=== PATIENT | male | born 1965 | race Hispanic/Latino ===

== ENCOUNTER 2019-02-26 12:23 | Emergency (ER) | payer SELFPAY ==
[2019-02-26] MEDS ORDERED: ONDANSETRON 4 MG/2 ML VIAL ONE (12:43)
[2019-02-26] MEDS ORDERED: NA CHLORIDE 0.9% 1,000 ML ONE ×2 (12:43→13:35)
[2019-02-26 12:58] LABS: Absolute Lymphocytes (CBC) 1.2 K/uL (0.7-4.9); Basophils % 0.2 % (0-1.3); Hematocrit 42.4 % (39.6-49.0); Lymphocytes % 12.8 % (15.3-44.8); MPV 9.9 fL (7.6-11.3); RBC Red Blood Cell Count 4.72 M/uL (4.33-5.43)
[2019-02-26 13:06] LABS: Protime INR 1.09
[2019-02-26 13:21] LABS: ALT/SGPT 35 U/L (12-78); AST/SGOT 28 U/L (15-37); Albumin 4.1 g/dL (3.4-5.0); Alkaline Phosphatase 79 U/L (45-117); BUN Blood Urea Nitrogen 18 mg/dL (7-18); Bicarbonate 20 mmol/L (21-32); Bilirubin Direct 0.2 mg/dL (0-0.2); Bilirubin Total 0.7 mg/dL (0.2-1.0); CKMB Creatine Kinase MB 2.2 ng/mL (0.3-3.6); Creatine Phosphokinase 275 U/L (39-308); Glucose Level 193 mg/dL (74-106); Magnesium 1.8 mg/dL (1.8-2.4); NT PRO-BNP 65 pg/mL (<125); Protein, Total 7.8 g/dL (6.4-8.2); Sodium Level 133 mmol/L (136-145); Troponin (Emerg Dept Use Only) < 0.02 ng/mL (0.0-0.045)
--- NOTE | 2019-02-26 15:16 | ER ---
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 denies vomiting or chest pain. he took 3 salt tablets. BGL was 324 mg/dl. BP was high from 190/100 decreased to 160/80, 94 pulse and after 700 ml NS bolus. Transition of care: patient was not received from another setting of care. Onset of symptoms was February 26, 2019. Risk Assessment: Do you want to hurt yourself or someone else? Patient reports no desire to harm self or others. Risk Assessment: Do you want to hurt yourself or someone else?. Initial Sepsis Screen: Does the patient meet any 2 criteria? No. Patient's initial sepsis screen is negative. Does the patient have a suspected source of infection? No. Patient's initial sepsis screen is negative. Care prior to arrival: None. 12:33 Method Of Arrival: EMS: [facility] mg2 12:33 Acuity: COURTNEY 3 mg2 Historical: - Allergies: 12:38 PENICILLINS; mg2 - Home Meds: 12:38 metformin 500 mg [Active]; glapizy [Active]; labitra 10 mg [Active]; lisinopril 10 mg mg2 [Active]; - PMHx: 12:38 Hypertension; Diabetes - NIDDM; mg2 - PSHx: 12:38 hand surgery; mg2 - Immunization history:: Flu vaccine is not up to date. - Social history:: Smoking status: Patient/guardian denies using tobacco, Patient/guardian denies using alcohol, street drugs, IV drugs. - Ebola Screening: : No symptoms or risks identified at this time. Screenin:39 Abuse screen: Denies threats or abuse. Denies injuries from another. Nutritional mg2 screening: No deficits noted. Tuberculosis screening: No symptoms or risk factors identified. Fall Risk IV access (20 points). Assessment: 12:41 General: Appears in no apparent distress. comfortable, Behavior is calm, cooperative. mg2 Pain: Complains of pain in abdomen, right leg and left leg Pain does not radiate. Quality of pain is described as crampy, Pain began gradually, Is intermittent. Neuro: Level of Consciousness is awake, alert, obeys commands, Oriented to person, place, time, situation. Cardiovascular: Capillary refill < 3 seconds Patient's skin is warm and dry. Respiratory: Airway is patent Respiratory effort is even, unlabored, Respiratory pattern is regular, symmetrical. GI: Reports lower abdominal pain, cramping, nausea. : No signs and/or symptoms were reported regarding the genitourinary system. EENT: No signs and/or symptoms were reported regarding the EENT system. Derm: Skin is intact, is healthy with good turgor, Skin is pink, warm \T\ dry. normal. Musculoskeletal: Circulation, motion, and sensation intact. Capillary refill < 3 seconds. 13:50 Reassessment: patient still complained of right leg cramping. mg2 Vital Signs: 12:35 BP 139 / 98; Pulse 90; Resp 18; Temp 97.9; Pulse Ox 100% on R/A; Weight 88.9 kg; Height mg2 5 ft. 6 in. (167.64 cm); Pain 0/10; 14:08 BP 129 / 90; Pulse 78; Resp 18; Pulse Ox 100% on R/A; mg2 15:56 BP 128 / 78; Pulse 80; Resp 18; Temp 98; Pulse Ox 100% on R/A; Pain 0/10; mg2 12:35 Body Mass Index 31.63 (88.90 kg, 167.64 cm) mg2 ED Course: 12:32 Patient arrived in ED. mg2 12:34 Emiliano Zapata PA is PHCP. cp 12:34 Steve Green MD is Attending Physician. cp 12:35 Triage completed. mg2 12:38 EKG done, by communication electronic technician. reviewed by Emiliano PEREZ. vh 12:38 No provider procedures requiring assistance completed. Maintain EMS IV. Dressing mg2 intact. Good blood return noted. Site clean \T\ dry. Gauge \T\ site: 18 \T\ LAC. 12:38 Arm band placed on. mg2 12:42 Patient has correct armband on for positive identification. mg2 12:47 Markos Godfrey RN is Primary Nurse. mg2 15:57 IV discontinued, intact, bleeding controlled, No redness/swelling at site. Pressure mg2 dressing applied. Administered Medications: 12:47 Drug: Zofran 4 mg Route: IVP; Site: left antecubital; mg2 14:32 Follow up: Response: No adverse reaction; Marked relief of symptoms mg2 12:47 Drug: NS 0.9% 1000 ml Route: IV; Rate: 1 bolus; Site: left antecubital; mg2 14:32 Follow up: Response: No adverse reaction; IV Status: Completed infusion; IV Intake: mg2 1000ml 14:03 Drug: NS 0.9% 1000 ml Route: IV; Rate: 1 bolus; Site: left antecubital; mg2 15:57 Follow up: Response: No adverse reaction; IV Status: Completed infusion; IV Intake: mg2 1000ml Point of Care Testing: Blood Glucose: 12:40 Blood Glucose: 218 mg/dL; mg2 Ranges: Intake: 14:32 IV: 1000ml; Total: 1000ml. mg2 15:57 IV: 1000ml; Total: 2000ml. mg2 Outcome: 15:15 Discharge ordered by MD. cp 15:57 Discharged to home ambulatory, with friend. mg2 15:57 Condition: stable 15:57 Discharge instructions given to patient, Instructed on discharge instructions, follow up and referral plans. medication usage, Demonstrated understanding of instructions, follow-up care, medications, Prescriptions given X 1. 15:58 Patient left the ED. mg2 Signatures: Milana Contreras Corey, PA PA cp Gardose, Michele, RN RN mg2
--- NOTE | 2019-02-26 15:16 | EDPHYS ---
Physician Documentation [facility] Name: Sesar Cabrera Age: 53 yrs Sex: Male : 1965 Arrival Date: 02/26/2019 Time: 12:32 Bed 2 Private MD: ED Physician Steve Green HPI: 02/26 12:40 This 53 yrs old Male presents to ER via EMS with complaints of nausea, cp generalized cramping. 12:40 generalized cramping. Onset: The symptoms/episode began/occurred today, while at work. cp Severity of symptoms: in the emergency department the symptoms are unchanged despite EMS interventions. Patient reports generalized cramping, nausea that started this afternoon after working outside since this morning. No vomiting, no chest or abdominal pain, no passing out. Historical: - Allergies: 12:38 PENICILLINS; mg2 - Home Meds: 12:38 metformin 500 mg [Active]; glapizy [Active]; labitra 10 mg [Active]; lisinopril 10 mg mg2 [Active]; - PMHx: 12:38 Hypertension; Diabetes - NIDDM; mg2 - PSHx: 12:38 hand surgery; mg2 - Immunization history:: Flu vaccine is not up to date. - Social history:: Smoking status: Patient/guardian denies using tobacco, Patient/guardian denies using alcohol, street drugs, IV drugs. - Ebola Screening: : No symptoms or risks identified at this time. ROS: 12:45 Constitutional: Negative for body aches, chills, fever, poor PO intake. cp 12:45 Eyes: Negative for injury, pain, redness, and discharge. cp 12:45 ENT: Negative for drainage from ear(s), ear pain, sore throat, difficulty swallowing, difficulty handling secretions. 12:45 Cardiovascular: Negative for chest pain, edema, palpitations. 12:45 Respiratory: Negative for cough, shortness of breath, wheezing. 12:45 Abdomen/GI: Positive for nausea, abdominal cramps, Negative for abdominal pain, constipation, black/tarry stool, rectal bleeding. 12:45 Back: Negative for pain at rest, pain with movement. 12:45 : Negative for burning with urination. 12:45 MS/extremity: Positive for generalized muscle cramps. 12:45 Neuro: Negative for altered mental status, dizziness, headache, syncope, weakness. 12:45 All other systems are negative. Exam: 12:35 ECG was reviewed by the Attending Physician. cp 12:50 Constitutional: The patient appears in no acute distress, alert, awake, cp non-diaphoretic, non-toxic, well developed, well nourished. 12:50 Head/Face: Normocephalic, atraumatic. cp 12:50 Eyes: Periorbital structures: appear normal, Pupils: equal, round, and reactive to cp light and accomodation, Extraocular movements: intact throughout, Conjunctiva: normal, no exudate, no injection, Sclera: no appreciated abnormality, Lids and lashes: appear normal, bilaterally. 12:50 ENT: External ear(s): are unremarkable, Nose: is normal, Mouth: Lips: moist, Oral mucosa: pink and intact, moist, Posterior pharynx: is normal, airway is patent, no erythema, no exudate. 12:50 Neck: ROM/movement: is normal, is supple, without pain, no range of motions cp limitations, no nuchal rigidity. 12:50 Chest/axilla: Inspection: normal, Palpation: is normal, no crepitus, no tenderness. 12:50 Cardiovascular: Rate: normal, Rhythm: regular, Edema: is not appreciated, JVD: is not appreciated. 12:50 Respiratory: the patient does not display signs of respiratory distress, Respirations: normal, no use of accessory muscles, no retractions, no splinting, no tachypnea, labored breathing, is not present, Breath sounds: are clear throughout, no decreased breath sounds, no stridor, no wheezing. 12:50 Abdomen/GI: Inspection: abdomen appears normal, Bowel sounds: active, all quadrants, Palpation: soft, in all quadrants, nontender, in all quadrants, involuntary guarding, is not appreciated. 12:50 Back: pain, is absent, ROM is normal. 12:50 Skin: no rash present. 12:50 Neuro: Orientation: to person, place \T\ time. Mentation: is normal, Cerebellar function: is grossly normal, Motor: moves all fours, strength is normal, Sensation: is normal. Vital Signs: 12:35 BP 139 / 98; Pulse 90; Resp 18; Temp 97.9; Pulse Ox 100% on R/A; Weight 88.9 kg; Height mg2 5 ft. 6 in. (167.64 cm); Pain 0/10; 14:08 BP 129 / 90; Pulse 78; Resp 18; Pulse Ox 100% on R/A; mg2 15:56 BP 128 / 78; Pulse 80; Resp 18; Temp 98; Pulse Ox 100% on R/A; Pain 0/10; mg2 12:35 Body Mass Index 31.63 (88.90 kg, 167.64 cm) mg2 MDM: 12:53 Patient medically screened. cp 15:14 Data reviewed: vital signs, nurses notes, lab test result(s), EKG. cp 15:14 Differential Diagnosis dehydration, renal failure, rhabdomyolysis, electrolyte cp abnormality. Test interpretation: by ED physician or midlevel provider: ECG. Response to treatment: the patient's symptoms have markedly improved after treatment, and as a result, I will discharge patient. 02/26 12:35 Order name: Basic Metabolic Panel; Complete Time: 13:31 cp 02/26 13:31 Interpretation: Normal except: NA 133; CO2 20; GLUC 193; CRE 1.69; GFR 43. cp 02/26 12:35 Order name: CBC with Diff; Complete Time: 13:31 cp 02/26 13:32 Interpretation: Normal except: CHANG% 79.6; LYM% 12.8. cp 02/26 12:35 Order name: LFT's; Complete Time: 13:31 cp 02/26 12:35 Order name: Magnesium; Complete Time: 13:31 cp 02/26 12:35 Order name: NT PRO-BNP; Complete Time: 13:31 cp 02/26 12:35 Order name: PT-INR; Complete Time: 13:31 cp 02/26 12:35 Order name: Troponin (emerg Dept Use Only); Complete Time: 13:31 cp 02/26 12:35 Order name: EKG; Complete Time: 12:36 cp 02/26 12:35 Order name: Ckmb; Complete Time: 13:31 cp 02/26 12:35 Order name: CK; Complete Time: 13:31 cp 02/26 12:35 Order name: Cardiac monitoring; Complete Time: 12:39 cp 02/26 12:35 Order name: EKG - Nurse/Tech; Complete Time: 12:39 cp 02/26 12:35 Order name: IV Saline Lock; Complete Time: 12:39 cp 08/16 12:35 Order name: Labs collected and sent; Complete Time: 12:39 cp 08/16 12:35 Order name: O2 Per Protocol; Complete Time: 12:39 cp 08/16 12:35 Order name: O2 Sat Monitoring; Complete Time: 12:39 cp 08/16 12:35 Order name: Finger Stick; Complete Time: 12:39 cp 08/16 14:12 Order name: PO challenge; Complete Time: 15:01 cp EC:35 Rate is 92 beats/min. Rhythm is regular. GA interval is prolonged at 224 msec. QRS cp interval is normal. QT interval is normal. Interpreted by me. Reviewed by me. Administered Medications: 12:47 Drug: Zofran 4 mg Route: IVP; Site: left antecubital; mg2 14:32 Follow up: Response: No adverse reaction; Marked relief of symptoms mg2 12:47 Drug: NS 0.9% 1000 ml Route: IV; Rate: 1 bolus; Site: left antecubital; mg2 14:32 Follow up: Response: No adverse reaction; IV Status: Completed infusion; IV Intake: mg2 1000ml 14:03 Drug: NS 0.9% 1000 ml Route: IV; Rate: 1 bolus; Site: left antecubital; mg2 15:57 Follow up: Response: No adverse reaction; IV Status: Completed infusion; IV Intake: mg2 1000ml Point of Care Testing: Blood Glucose: 12:40 Blood Glucose: 218 mg/dL; mg2 Ranges: Critical Glucose Levels:Adult <50 mg/dl or >400 mg/dl <40 mg/dl or >180 mg/dl Disposition: 18:12 Co-signature as Attending Physician, Steve Green MD. rn Disposition: 02/26/19 15:15 Discharged to Home. Impression: Cramp and spasm - generalized, Nausea. - Condition is Stable. - Discharge Instructions: Dehydration, Adult, Muscle Cramps and Spasms. - Prescriptions for Zofran 4 mg Oral Tablet - take 1 tablet by ORAL route every 12 hours As needed; 20 tablet. - Medication Reconciliation Form, Thank You Letter, Antibiotic Education, Prescription Opioid Use form. - Follow up: Private Physician; When: 2 - 3 days; Reason: Worsening of condition. - Problem is new. - Symptoms have improved. Signatures: Dispatcher [employer] EDMS Steve Green MD MD rn Emiliano Zapata PA PA cp Markos Godfrey, RN RN mg2 Corrections: (The following items were deleted from the chart) 15:15 15:12 EKG Electrocardiogram ordered. [facility] 15:58 15:15 02/26/2019 15:15 Discharged to Home. Impression: Cramp and spasm - generalized; mg2 Nausea. Condition is Stable. Forms are Medication Reconciliation Form, Thank You Letter, Antibiotic Education, Prescription Opioid Use. Follow up: Private Physician; When: 2 - 3 days; Reason: Worsening of condition. Problem is new. Symptoms have improved. cp
--- NOTE | 2019-02-27 09:10 | EKG ---
Test Date: 2019-02-26 Test Time: 12:27:09 Industrial Cleaning Technician: CRISTIN MEASUREMENT RESULTS: Intervals: Rate: 92 FL: 224 QRSD: 84 QT: 374 QTc: 462 [place]: P: 33 FL: 224 QRS: 42 T: 49 INTERPRETIVE STATEMENTS: Sinus rhythm with 1st degree AV block Otherwise normal ECG No previous ECG available for comparison Electronically Signed On 02-27-19 09:08:17 CDT by Tano Johnston
== END 2019-02-26 15:58 | disposition home or self-care (01) ==
LOC: EDBD 12:23 → ER 12:23
DX: R25.2 Cramp and spasm (principal); I10 Essential (primary) hypertension; E11.9 Type 2 diabetes mellitus without complications; Z88.0 Allergy status to penicillin
CPT/HCPCS: 36415; 80048; 80076; 82550; 82553; 82962; 83735; 83880; 84484; 85025; 85610; 93005; 96361; 96374; 99284; J2405; J7030